=== PATIENT | male | born 1980 | race Caucasian/White ===

== ENCOUNTER → 2019-01-26 17:27 | Outpatient (CLI) | payer BC, SELFPAY ==
[2019-01-11 13:22] VITALS: BMI 26.7
--- NOTE | 2019-01-26 17:34 | CT_ITS ---
STUDY: CT CHEST WITH CONTRAST REASON FOR EXAM: Male, 38 years old. Mediastinal adenopathy RADIATION DOSAGE (If Supplied By Facility): DLP = ( 742.73 ) mGycm TECHNIQUE: Transaxial imaging was performed following intravenous administration of 100 ml of Isovue 300 contrast material. Coronal and sagittal reformatted images were created. Individualized dose optimization techniques were used for this CT. COMPARISON: None FINDINGS: There are no pulmonary infiltrates or pleural effusions. There are no pulmonary nodules or masses. There is no pneumothorax. The heart and pericardium are within normal limits. There is bulky mediastinal and bilateral hilar lymphadenopathy. Engineering Geologist examples include a 2.9 cm subcarinal node 3.2 cm subcarinal node, a right hilar 2 cm node, a left hilar 2.1 cm node, a periaortic 2.5 cm node, and a right lower neck/supraclavicular 1.5 cm node. There is no evidence of thoracic aortic aneurysm. Images through the upper abdomen demonstrate no acute abnormality. There is mild heterogeneity of the liver. The gallbladder has been removed. There are no destructive osseous lesions. There is mild multilevel endplate compression, with partial compression fracture of a mid thoracic vertebral body. CT/Chest WITH Contrast IMPRESSION: Bulky predominantly mediastinal and bilateral hilar lymphadenopathy as described above. Concerning for neoplasm such as lymphoma. Correlate clinically. Mild multilevel endplate compression in the spine with partial compression fracture of a midthoracic vertebral body. Mild heterogeneity of the liver. Ultrasound is suggested for further assessment. Electronically Signed: Yoan Chamorro, at 18:08 EDT Tel , Service support ,
== END ==
PROVIDERS: Family Provider Nurse Practitioner Family; PCP Nurse Practitioner Family; Referring Provider Internal Medicine Critical Care Medicine; Visit Provider Internal Medicine Critical Care Medicine
DX: R59.0 Localized enlarged lymph nodes (principal)
CPT/HCPCS: 71260; Q9967

== ENCOUNTER → 2019-02-12 07:49 | Outpatient (CLI) | payer BC, SELFPAY ==
[2019-02-02 13:55] VITALS: BMI 26.7
--- NOTE | 2019-02-12 10:04 | PFT ---
INTRODUCTION: The patient is a 38-year-old male that presents for pulmonary function studies secondary to a diagnosis of mediastinal lymphadenopathy. Respiratory therapy reports good patient effort. Bronchodilators were used during testing. INTERPRETATION: Forced expiration spirometry demonstrates no evidence of a large airways obstructive ventilatory defect. There was no significant response to aerosolized bronchodilators. Spirograms are of good quality and plateau normally. Body plethysmography was performed and reveals lung volumes to be within normal limits. Diffusing capacity by single breath CO was also within normal limits. IMPRESSION: Grossly normal pulmonary function studies.
== END ==
PROVIDERS: Family Provider Nurse Practitioner Family; PCP Nurse Practitioner Family; Referring Provider Nurse Practitioner Acute Care; Visit Provider Nurse Practitioner Acute Care
DX: R59.0 Localized enlarged lymph nodes (principal)
CPT/HCPCS: 94060; 94726; 94729

== ENCOUNTER 2019-03-02 11:15 | Day surgery (SDC) | payer BC, SELFPAY ==
[2019-02-02 13:55] VITALS: BMI 26.7
--- NOTE | 2019-02-12 10:08 | HP.PCM_ITS ---
History of Present Illness Date of Admission: 02/16/19 Chief Complaint: Mediastinal lymphadenopathy The patient is a 38-year-old male who initially presented to the pulmonary medicine clinic in referral for the evaluation of mediastinal lymphadenopathy. On October 29, 2018, the patient presented to his local emergency department ([facility]) with complaints of lower extremity edema. As part of his emergency department work-up a CTA chest was obtained to evaluate for the presence of PE. That imaging study revealed the presence of right hilar, subcarinal and paratracheal lymphadenopathy. A CT abdomen/pelvis was also completed in October 2018 but did not demonstrate evidence of acute disease. There was no evidence of abdominal or pelvic adenopathy. This is the only CAT scan of his chest the patient has ever had completed, per his account. The patient does report a history of ulcerative colitis along with epilepsy and severe reflux disease. He is currently on treatment for all of the aforementioned. While he does not currently smoke cigarettes, he does report a long-standing history of smokeless tobacco use. 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 A repeat CT chest with contrast was completed on January 26, which did confirm evidence of extensive mediastinal and hilar lymphadenopathy. Pulmonary function studies completed on February 12 were grossly within normal limits. Given the f indings noted on the patient's CT chest, recommendation was made that he undergo mediastinal lymph node sampling by EBUS. The risks and benefits of the proposed procedure were discussed with the patient. Questions were answered and consent was obtained. 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 Microcytic anemia D50.9 Peripheral edema R60.9 Proctitis K62.89 Rhinosinusitis J32.9 Seizure disorder G40.909 Allergies No Known Allergies Allergy (Unverified 02/02/19 13:52) Home Medications: Ambulatory Orders Medication Instructions Recorded carbamazepine ER 100 mg 100 mg PO BID 01/05/19 tablet,extended release,12 hr mesalamine 800 mg tablet,delayed 1,600 mg PO TID 01/05/19 release naproxen sodium 550 mg tablet 550 mg PO BID 01/05/19 Surgical History: Surgical History (Last Reviewed 02/02/19 @ 13:58 by Joan Durant NP-Helder) H/O inguinal hernia repair Z98.890, Z87.19 Review of Systems Constitutional: Denies: Chills, Fever, Weight Change HEENT: Denies: Head Aches, Sinus Congestion, Sinus Drainage Cardiovascular: Reports: Edema Respiratory: Denies: Cough, Shortness of breath at rest, Sputum production Gastrointestinal: Denies: Abdominal Pain, Nausea, Vomiting Genitourinary: Denies: Dysuria Musculoskeletal: Denies: Joint Pain, Joint Tenderness Skin: Denies: Rash, Wounds Neurological: Reports: Seizures Psychiatric: Denies: Anxiety, Depression, Homicidal Ideations, Suicidal Ideations Hematologic/ Lymphatic: Reports: Adenopathy. Denies: Easy Bruising, Easy Bleeding VTE Information - Inpt Only VTE Present on Admission: No VTE Mechan Device Prophylaxis: None VTE Pharm Prophylaxis ordered?: No Reason prophylaxis not ordered:: Treatment Not Indicated - Physical Exam General: Alert, Oriented x3, No apparent distress HEENT: Atraumatic, PERRLA, EOMI, Normocephalic Neck: Supple, No JVD, Negative Carotid Bruits Lungs: Clear to auscultation, Normal air movement Cardiovascular: Regular rate, No murmurs Abdomen: Bowel Sounds Present, Soft, Non Tender Extremities: No edema, Capillary Refill Less than 3 Seconds Skin: No rashes, No breakdown Musculoskeletal: No Tenderness to Palpation of Joints or Extremities Neurological: Cranial nerves II-XII grossly intact Psych/Mental Status: Normal Affect, Appropriate Body Mass Index (BMI) 26.7 Assessment/Plan All Active Problems (Last Reviewed 02/02/19 @ 13:58 by Joan Durant INDUSTRIAL RETROFIT DESIGNER-C) Mediastinal lymphadenopathy (Acute) 1. Mediastinal lymphadenopathy R59.0 Plan CTA chest completed through [facility] on October 29, 2018 reportedly revealed evidence of mediastinal and hilar adenopathy. A repeat CT chest with contrast was then completed in January 2019, and again demonstrated evidence of bulky mediastinal and hilar lymphadenopathy. Based upon these findings, it was recommended that the patient be referred to undergo mediastinal lymph node sampling via EBUS. Risks and benefits of the proposed procedure were discussed with the patient. Consent was obtained. Questions were answered.
[2019-03-02] VITALS (8 sets, daily range): BP systolic 104–124; BP diastolic 65–96; PULSE 55–78; RESP 16; TEMP 36.2–36.9; O2SAT 92–100; BMI 27.1
--- NOTE | 2019-03-02 13:00 | FLU_PTH ---
PATIENT: KAI GOYAL LOC: EN U#:[id number] AGE/SX: 38/M ROOM: RE03/02/[address]: Dr. Timo Lopez DO : 1980 BED: DIS: 03/02/2019 SPEC #: [id number] RECD: 03/02/19 13:25 STATUS: TL MCKEON #: [id number] ARELIS: 03/02/19 13:[address]: Timo Lopez DEPT: CYTOLOGY RECD BY: Vinnie العلي ENTERED: 03/02/19 13:27 SP TYPE: Fluid OTHR DR: Carmen Butler, CASCARA BARK CUTTER-Helder Tissues: A - Lung, NOS B - Lung, NOS C - Lung, NOS D - Lung, NOS E - Lung, NOS Procedures: Special Stain Group II Surgery Specimen Level IV Cytospin Fluid Cytology Other HEADER OPERATION: Endobronchial ultrasound PRE-OP DIAGNOSIS: Mediastinal lymphadenopathy TISSUE SUBMITTED: A-C - EBUS, FNA, site 7, D - EBUS, FNA, site 10R, E - Site 10R/7 fluid DIAGNOSIS CYTOLOGY A. EBUS, site 7, FNA, aspiration #1 (smears): Granulomas are noted. Negative for malignancy. Lymphocytes are present. Adequate for evaluation. B. EBUS, site 7, FNA, aspiration #2 (smears): Granulomas are noted. Negative for malignancy. Lymphocytes are present. Adequate for evaluation. C. EBUS, site 7, FNA, aspiration #3 (smears): Negative for malignant cells. Negative for granulomas. The specimen predominantly consists of blood and respiratory epithelial cells. A few lymphocytes are noted. D. EBUS, site 10R, FNA, aspiration #4 (smears): Lymphocytes and respiratory epithelial cells are noted. Negative for granulomas. Negative for malignant cells. Adequate for evaluation. E. EBUS, site 10R/7 fluid (cell block): Paucicellular specimen. Negative for malignancy or granulomas. Flow cytometry study from [employer] shows no phenotypic evidence of non-Hodgkin lymphoma. Complete report is viewable in patient's EMR. See comment. SJ:linwood 03/05/19 COMMENT The specimen is evaluated at the time of procedure by Dr. Borges. Immediate Evaluation: A. EBUS aspiration #1, site 7: Adequate for evaluation. Granulomas are noted. Reported to Dr. Lopez at 12:47 p.m. B. EBUS aspiration #2, site 7: Adequate for evaluation. Granulomas are noted. Reported to Dr. Lopez at 12:53 p.m. C. EBUS aspiration #3, site 7: Blood and predominantly respiratory epithelial cells. Reported to Dr. Lopez at 1:00 p.m. D. EBUS aspiration #4, site 10R: Adequate for evaluation. Lymphocytes and respiratory epithelial cells noted. Negative for malignancy. Reported to Dr. Lopez at 1:07 p.m. E. The cell block is paucicellular and shows rare lymphocytes and respiratory epithelial cells. Correlation with clinical, radiologic findings and culture studies and appropriate follow up are suggested as clinically indicated. CYTOLOGY STUDY Slides are reviewed. CYTOLOGY GROSS A - Received labeled with the patient's name and and designated EBUS, FNA, site 7, aspiration #1. The specimen consists of two smears that are submitted for immediate cytologic evaluation (wet read). B - Received labeled with the patient's name and and designated EBUS, FNA, site 7, aspiration #2. The specimen consists of two smears that are submitted for immediate cytologic evaluation (wet read). C - Received labeled with the patient's name and and designated EBUS, FNA, site 7, aspiration #3. The specimen consists of two smears that are submitted for immediate cytologic evaluation (wet read). D - Received labeled with the patient's name and and designated EBUS, FNA, site 10R, aspiration #4. The specimen consists of two smears that are submitted for immediate cytologic evaluation (wet read). E - Received is 35 ml of fluid in RPMI labeled with the patient's name and and designated transbronchial needle aspiration, sites 10R/7. One-half submitted for cell block and the other half submitted for flow cytometry studies. / SJ:linwood 03/02/19 TC:5 CPT: 57140, 99391 x2, 52462 x2, 91901 x2
--- NOTE | 2019-03-02 13:25 | OP.ENDO_ITS ---
Patient Name: Orlando Hanna Procedure Date: 03/02/2019 8:27 AM Date of : 1980 Age: 38 Procedure: Bronchoscopy Indications: Mediastinal adenopathy Providers: Timo Lopez MD Referring MD: Guanako Muir Medicines: General Anesthesia Complications: No immediate complications Procedure: Pre-Anesthesia Assessment: - A History and Physical has been performed. Patient meds and allergies have been reviewed. The risks and benefits of the procedure and the sedation options and risks were discussed with the patient. All questions were answered and informed consent was obtained. Patient identification and proposed procedure were verified prior to the procedure by the physician and the nurse in the procedure room. Mental Status Examination: alert and oriented. Airway Examination: normal oropharyngeal airway. Respiratory Examination: clear to auscultation. CV Examination: RRR, no murmurs, no S3 or S4. ASA Grade Assessment: II - A patient with mild systemic disease. After reviewing the risks and benefits, the patient was deemed in satisfactory condition to undergo the procedure. The anesthesia plan was to use general anesthesia. Immediately prior to administration of medications, the patient was re-assessed for adequacy to receive sedatives. The heart rate, respiratory rate, oxygen saturations, blood pressure, adequacy of pulmonary ventilation, and response to care were monitored throughout the procedure. The physical status of the patient was re-assessed after the procedure. After I obtained informed consent, the scope was passed under direct vision. Throughout the procedure, the patient's blood pressure, pulse, and oxygen saturations were monitored continuously.The procedure was accomplished without difficulty. The patient tolerated the procedure well. The ultrasound bronchoscope was introduced through the mouth, via laryngeal mask airway and advanced to the tracheobronchial tree. Findings: The laryngeal mask airway is in good position. The vocal cords appear normal. The subglottic space is normal. The trachea is of normal caliber. The fernando is sharp. The tracheobronchial tree was examined to at least the first subsegmental level. Bronchial mucosa and anatomy are normal; there are no endobronchial lesions, and no secretions. The scope was withdrawn and replaced with the EBUS bronchoscope to accomplish the ultrasound examination. Lymph Nodes: An endobronchial ultrasound endoscope was utilized to systematically examine the subcarinal mediastinum (level 7) and right hilar region (level 10R) in order to assist with fine needle aspiration. Lymph node sizing was performed via endobronchial ultrasound for Lymphoma vs granulomatous lung disease. Sampling by transbronchial needle aspiration was also performed using an Olympus EBUS-TBNA 19 gauge needle in the subcarinal mediastinum (level 7) and right hilar region (level 10R) and sent for cell count, bacterial culture, viral smears & culture, and fungal & AFB analysis and cytology and flow cytometry. - Four samples with the needle were obtained from the 7 (subcarinal) node. - One sample with the needle was obtained from the 10R (hilar) node. Lymph Nodes: Rapid On-Site Evaluation (ABELARDO): Preliminary cytology was suggestive of granulomatous tissue (final results are pending) Impression: - Mediastinal adenopathy - The airway examination was normal. - Endobronchial ultrasound was performed. - Lymph node sizing and sampling was performed. - Rapid On-Site Evaluation (ABELARDO): Preliminary cytology was suggestive of granulomatous tissue (final results are pending). Recommendation: - Await biopsy and cytology results. Procedure Code(s): --- Professional --- 86188, Bronchoscopy, rigid or flexible, including fluoroscopic guidance, when performed; with endobronchial ultrasound (EBUS) guided transtracheal and/or transbronchial sampling (eg, aspiration[s]/biopsy[ies]), 3 or more mediastinal and/or hilar lymph node stations or structures Diagnosis Code(s): --- Professional --- R59.0, Localized enlarged lymph nodes R09.89, Other specified symptoms and signs involving the circulatory and respiratory systems CPT copyright 2017 [employer]. All rights reserved. The codes documented in this report are preliminary and upon cupola liner helper review may be revised to meet current compliance requirements. DO Timo Sepulveda MD 03/02/2019 1:24:56 PM This report has been signed electronically. Number of Addenda: 0 Note Initiated On: 03/02/2019 8:27 AM
[2019-03-02 13:52] LABS: Cytology, Body Fluid / CSF SEE PATHOLOGY REPORT
[2019-03-02 14:36] LABS: Appearance/Body Fluid SL CLDY; Color/Body Fluid RED; Source- Body Fluid BRONCHIAL LAVAGE
[2019-03-02 14:40] LABS: Red Cell Count/Body Fluid 24621 /mm3
[2019-03-02 14:41] LABS: White Blood Count/Body Fluid 2444 /mm3
[2019-03-02 14:51] LABS: Lymphocytes 82 %; Neutrophil (Segs) 18 %
[2019-03-02 14:52] LABS: Body Fluid QC Type(s) BF6Q
[2019-03-02] MEDS: Acetaminophen 500 MG Tablet 1000 MG PO (15:01)
[2019-03-05 12:16] LABS: Pathologist Comment/Body Fluid Reviewed
== END 2019-03-02 15:20 | disposition home or self-care (01) ==
LOC: EN 11:16 → AC 11:17
PROVIDERS: Family Provider Nurse Practitioner Family; PCP Nurse Practitioner Family; Referring Provider Nurse Practitioner Family; Visit Provider Internal Medicine Critical Care Medicine
PROC: BB4BZZZ Ultrasonography of Pleura (ICD-10-PCS; CPT 31653; principal; 2019-03-02 12:00)
DX: J84.10 Pulmonary fibrosis, unspecified (principal); R59.0 Localized enlarged lymph nodes; K21.9 Gastro-esophageal reflux disease without esophagitis; K51.90 Ulcerative colitis, unspecified, without complications; G40.909 Epilepsy, unspecified, not intractable, without status epilepticus; F17.220 Nicotine dependence, chewing tobacco, uncomplicated; Z79.899 Other long term (current) drug therapy
CPT/HCPCS: 31653; 87015; 87070; 87075; 87101; 87116; 87205; 87206; 88108; 88161; 88305; 88313; 89050; J7120; J2405

== ENCOUNTER → 2019-03-09 11:09 | Outpatient (CLI) | payer BC, SELFPAY ==
[2019-03-02 11:33] VITALS: BMI 27.1
== END ==
PROVIDERS: Family Provider Nurse Practitioner Family; PCP Nurse Practitioner Family; Referring Provider Internal Medicine Critical Care Medicine; Visit Provider Internal Medicine Critical Care Medicine
DX: R59.0 Localized enlarged lymph nodes (principal)
CPT/HCPCS: 36415; 82164; 86256; 87385

== ENCOUNTER → 2023-03-12 | Outpatient (CLI) | payer MEDICAID, SELFPAY ==
[2023-03-12 07:45] LABS: Hemoglobin 13.1 g/dL (13.0-16.5); Mean Corp Hgb Conc 32.8 g/dL (32-36); Mean Corpuscular Hgb 28.9 pg (27.0-32.0); Mean Corpuscular Volume 88.3 fL (80-94); Mean Platelet Vol. 8.8 fl (6.2-12.0); Platelet Count 194 K/mm3 (150-450); RBC Distribution Width CV 12.8 % (11.6-14.6); RBC Distribution Width SD 41.3 fl (35.1-43.9); Red Blood Count 4.53 M/mm3 (4.6-6.2); White Blood Count 5.1 K/mm3 (4.4-11.0)
[2023-03-12 08:18] LABS: ALB/GLOB Ratio 0.9 RATIO (0.9-2.4); AST(SGOT) 12 U/L (15-37); Alanine Aminotransfer ALT/SGPT 24 U/L (16-61); Albumin, Serum 3.3 g/dL (3.2-5.0); Alkaline Phosphatase 88 U/L (45-117); Anion Gap 4 (5-15); BUN 14 mg/dL (7-18); BUN/Creat Ratio 15.3 RATIO (10-20); Calcium,Total 8.1 mg/dL (8.5-10.1); Chloride 107 mmol/L (98-107); Creatinine, Serum 0.92 mg/dL (0.70-1.30); EST Glomerular Filtration Rate 95 mL/min (>60); Est Glom Filt Rate - Afr Amer 115 mL/min (>60); Globulin 3.8 g/dL (2.2-4.2); Glucose 104 mg/dL (74-106); Potassium 3.7 mmol/L (3.5-5.1); Protein, Total 7.1 g/dL (6.4-8.2); Sodium Level 137 mmol/L (136-145)
[2023-03-12 08:21] LABS: Carbamazepine (Tegretol) 8.8 ug/mL (4.0-12.0)
[2023-03-18 14:09] LABS: Testosterone, % Free 2.66 % (1.50-4.20); Testosterone, Total 436 ng/dL (264-916)
== END | disposition home or self-care (01) ==
LOC: LAB 07:18
PROVIDERS: PCP Nurse Practitioner Family; Referring Provider Psychiatry & Neurology Neurology; Visit Provider Psychiatry & Neurology Neurology
DX: G40.909 Epilepsy, unspecified, not intractable, without status epilepticus (principal); N52.9 Male erectile dysfunction, unspecified
CPT/HCPCS: 36415; 80053; 80156; 84402; 84403; 85027

== ENCOUNTER → 2023-09-16 | Outpatient (CLI) | payer MEDICAID, SELFPAY ==
[2023-09-16 07:44] LABS: Hematocrit 44.7 % (40-54); Hemoglobin 14.5 g/dL (13.0-16.5); Mean Corp Hgb Conc 32.4 g/dL (32-36); Mean Corpuscular Hgb 28.3 pg (27.0-32.0); Mean Corpuscular Volume 87.3 fL (80-94); Platelet Count 218 K/mm3 (150-450); RBC Distribution Width CV 13.2 % (11.6-14.6); RBC Distribution Width SD 42.2 fl (35.1-43.9); Red Blood Count 5.12 M/mm3 (4.6-6.2); White Blood Count 5.7 K/mm3 (4.4-11.0)
--- OUTSIDE RECORDS SUMMARY | 2023-09-16 07:50 | XMS RPT_ITS | CCD ---
Author Name Unknown Address [address] [place] [id number] Organization [facility] Care Team Providers Care Job Developer For Deaf Adults Name Role Phone RAFAEL MANDUJANO DO Admitting Unavailable RAFAEL MANDUJANO DO Primary Care Unavailable RAFAEL MANDUJANO DO Attending Unavailable EVITA MEZA CNP Consulting Unavailable VEITA MEZA CNP Referring Unavailable PROVIDER, UNKNOWN Consulting Unavailable PROVIDER, UNKNOWN Consulting Unavailable EVITA MEZA CNP Consulting Unavailable OKSANA FLOOD MD Admitting Unavailable OKSANA FLOOD MD Primary Care Unavailable OKSANA FLOOD MD Attending Unavailable PROVIDER, UNKNOWN Consulting Unavailable PROVIDER, UNKNOWN Consulting Unavailable EVITA MEZA CNP Consulting Unavailable OKSANA FLOOD MD Admitting Unavailable OKSANA FLOOD MD Primary Care Unavailable OKSANA FLOOD MD Attending Unavailable PROVIDER, UNKNOWN Consulting Unavailable PROVIDER, UNKNOWN Consulting Unavailable Allergies Allergy Classification Reported Allergen(s) Allergy Type Date of Onset Reaction(s) Facility (1 source) 10/18/20 (+) MRSA WOUND; Translations: [10/18/20 (+) MRSA WOUND] Propensity to adverse reactions (disorder) [facility] Repository Results Test Name Value Interpretation Reference Range Facil ity Encounters Encounter Date Encounter Type Care Provider Facility Start: 09-04-2022 End: 09-04-2022 ambulatory EVITA VILLALOBOS [facility] Start: 01-09-2022 End: 01-09-2022 ambulatory EVITA VILLALOBOS [facility] Start: 11-06-2021 End: 11-06-2021 Emergency department patient visit RAFAEL ZHANG [facility] Payers Date Payer Category Payer Unknown [id number] 1980 Unknown [id number] 1980 Unknown [id number] Private Health Insurance [id number] Summary Purpose Family History No Family History Records FoundNo Family History Records FoundNo Family History Records Found Advance Directives No Advanced Directives Records FoundNo Advanced Directives Records FoundNo Advanced Directives Records Found Additional Source Comments (unrecognized sect ion and content) No Status Records FoundNo Status Records FoundNo Status Records Found INFORMATION SOURCE (unrecogn ized section and content) DATE CREATED AUTHOR AUTHOR'S ORGANIZ ATION 10/25/2019 [facility] DATE CREATED AUTHOR AUTHOR'S ORGANIZ ATION 09/08/2022 [facility] FOR RECORDS PERTAINING TO PATIENTS WHO ARE OR HAVE BEEN ENROLLED IN A CHEMICAL DEPENDENCY/SUBSTANCEABUSE PROGRAM, SOME INFORMATION MAY BE OMITTED. This clinical summary was aggregated from multiple sources. Caution should be exercised in using it in the provision of clinical care. This summary normalizes information from multiple sources, and as a consequence, information in this document may materially change the coding, format and clinical context of patient data. In addition, data may be omitted in some cases. CLINICAL DECISIONS SHOULD BE BASED ON THE PRIMARY CLINICAL RECORDS. [employer] provides no warranty or guarantee of the accuracy or completeness of information in this document.
[2023-09-16 08:17] LABS: ALB/GLOB Ratio 0.9 RATIO (0.9-2.4); AST(SGOT) 15 U/L (15-37); Alanine Aminotransfer ALT/SGPT 32 U/L (16-61); Albumin, Serum 3.7 g/dL (3.2-5.0); Alkaline Phosphatase 111 U/L (45-117); Anion Gap 1 (5-15); BUN 19 mg/dL (7-18); BUN/Creat Ratio 16.8 RATIO (10-20); Chloride 109 mmol/L (98-107); Creatinine, Serum 1.13 mg/dL (0.70-1.30); EST Glomerular Filtration Rate 75 mL/min (>60); Est Glom Filt Rate - Afr Amer 90 mL/min (>60); Globulin 4.3 g/dL (2.2-4.2); Glucose 102 mg/dL (74-106); Potassium 4.3 mmol/L (3.5-5.1); Sodium Level 140 mmol/L (136-145)
[2023-09-16 10:03] LABS: Carbamazepine (Tegretol) 8.4 ug/mL (4.0-12.0)
== END | disposition home or self-care (01) ==
LOC: LAB 07:23
PROVIDERS: PCP Nurse Practitioner Family; Referring Provider Psychiatry & Neurology Neurology; Visit Provider Psychiatry & Neurology Neurology
DX: G40.909 Epilepsy, unspecified, not intractable, without status epilepticus (principal)
CPT/HCPCS: 36415; 80053; 80156; 85027

== ENCOUNTER → 2024-07-21 | Outpatient (CLI) | payer MEDICAID, SELFPAY ==
[2024-07-21 08:24] LABS: Hematocrit 44.2 % (40-54); Hemoglobin 14.8 g/dL (13.0-16.5); Mean Corp Hgb Conc 33.5 g/dL (32-36); Mean Corpuscular Hgb 29.2 pg (27.0-32.0); Mean Corpuscular Volume 87.2 fL (80-94); Mean Platelet Vol. 8.9 fl (6.2-12.0); Platelet Count 210 K/mm3 (150-450); RBC Distribution Width CV 13.4 % (11.6-14.6); RBC Distribution Width SD 42.1 fl (35.1-43.9); Red Blood Count 5.07 M/mm3 (4.6-6.2)
[2024-07-21 08:49] LABS: ALB/GLOB Ratio 0.9 RATIO (0.9-2.4); AST(SGOT) 18 U/L (15-37); Alanine Aminotransfer ALT/SGPT 39 U/L (16-61); Albumin, Serum 3.8 g/dL (3.2-5.0); Alkaline Phosphatase 100 U/L (45-117); Anion Gap 3 (5-15); BUN 14 mg/dL (7-18); Calcium,Total 8.8 mg/dL (8.5-10.1); Chloride 104 mmol/L (98-107); Creatinine, Serum 0.93 mg/dL (0.70-1.30); EST Glomerular Filtration Rate 93 mL/min (>60); Est Glom Filt Rate - Afr Amer 112 mL/min (>60); Globulin 4.1 g/dL (2.2-4.2); Glucose 108 mg/dL (74-106); Potassium 3.8 mmol/L (3.5-5.1); Protein, Total 7.9 g/dL (6.4-8.2); Sodium Level 138 mmol/L (136-145)
[2024-07-21 10:06] LABS: Carbamazepine (Tegretol) 7.8 ug/mL (4.0-12.0)
== END | disposition home or self-care (01) ==
LOC: LAB 08:10
PROVIDERS: PCP Nurse Practitioner Family; Referring Provider Psychiatry & Neurology Neurology; Visit Provider Psychiatry & Neurology Neurology
DX: G40.409 Other generalized epilepsy and epileptic syndromes, not intractable, without status epilepticus (principal)
CPT/HCPCS: 36415; 80053; 80156; 85027